=== PATIENT | male | born 1965 | race African-American/Black ===

== ENCOUNTER 2024-10-10 19:35 | Emergency (ER) | payer OTHER, SELFPAY ==
[2024-10-10 20:54] LABS: #Basophils 0.03 10x3/uL (0.0-0.2); #Eosinophils 0.14 10x3/uL (0.0-0.7); #Monocytes 1.05 10x3/uL (0.11-0.59); #Neutrophils 7.30 10x3/uL (1.40-6.50); %Basophils 0.3 % (0.0-1.0); %Eosinophils 1.5 % (0.0-10.0); %Lymphocytes 10.0 % (21.0-51.0); %Monocytes 11.0 % (0.0-10.0); %Neutrophils 76.8 % (42.0-75.0); Hematocrit 40.3 % (42.0-52.0); Hemoglobin 13.0 g/dL (14.0-18.0); Mean Corpuscular Hemoglobin 30.1 pg (27.0-31.0); Mean Corpuscular Volume 93.3 fL (78.0-98.0); Platelet Count 257 10x3/uL (130-400); Red Blood Cell (RBC) Count 4.32 mill/uL (4.70-6.10); White Blood Cell (WBC) Count 9.51 10x3/uL (4.8-10.8)
[2024-10-10 21:10] LABS: ALT (SGPT) 12 U/L (Less than 45); AST (SGOT) 26 U/L (11-34); Albumin 3.5 g/dL (3.1-4.5); Alkaline Phosphatase 102 U/L (40-110); Anion Gap 18 mmol/L (10-20); BUN (Urea Nitrogen) 14 mg/dL (8.4-25.7); Bilirubin, Total 0.6 mg/dL (0.3-1.2); Calc. Creatinine Clearance 0 mL/min (70-130); Calcium 9.4 mg/dL (7.8-10.44); Carbon Dioxide 21 mmol/L (22-29); Chloride 104 mmol/L (98-107); Globulin 4.6 g/dL (2.4-3.5); Glucose 111 mg/dL (70-105); Potassium 4.0 mmol/L (3.5-5.1); Sodium 139 mmol/L (136-145)
[2024-10-10] MEDS ORDERED: cefTRIAXone (ROCEPHIN) 500 MG VIAL ONE (22:14)
== END 2024-10-10 22:51 | disposition home or self-care (01) ==
LOC: ERS 19:35
DX: L03.116 Cellulitis of left lower limb (principal); I10 Essential (primary) hypertension; Z79.82 Long term (current) use of aspirin; Z79.899 Other long term (current) drug therapy
CPT/HCPCS: 36415; 80053; 85025; 96372; 99284; J0696